=== PATIENT | male | born 1950 | race African-American/Black ===

== ENCOUNTER 2022-10-01 18:01 | Emergency (ER) | payer MEDICAID, OTHER ==
[~2022-10-01] VITALS: Ht 167.6 cm; Wt 63.0 kg
[2022-10-01 20:20] LABS: Red Cell Distribution Width 17.4 % (11.8-14.3)
[2022-10-01 20:22] LABS: Hematocrit 34.7 % (41.0-53.0); Mean Corpuscular Hemoglobin 25.2 pg (28.0-32.0); Mean Corpuscular Hgb Conc. 31.8 g/dL (32.0-36.0); Mean Corpuscular Volume 79.1 fL (80.0-100.0); Red Blood Cells 4.38 10^6/uL (4.5-5.90); White Blood Cell 7.1 10^3/uL (4.4-10.8)
[2022-10-01 20:32] LABS: BUN/Creatinine Ratio 8.8; Band Neutrophils % (manual) 0; Basophils % (manual) 0 (0.0-2.0); Blast Cells 0; Calcium 8.6 mg/dL (8.5-10.1); Eosinophils % (manual) 0 (0-7); Metamyelocytes % 0; Myelocytes % 0; Potassium 3.9 mmol/L (3.5-5.1); Promyelocytes % 0; Reactive Lymphocytes 0
[2022-10-01 20:35] LABS: Bilirubin, Total 0.2 mg/dL (0.2-1.0); Total Protein 7.7 g/dL (6.4-8.2)
[2022-10-01 21:05] LABS: Lymphocytes % (manual) 21 (10.0-50.0); Monocytes % (manual) 3 (0-12)
[2022-10-01] MEDS ORDERED: CIPR0.3S EACHEYE (21:11)
[2022-10-01 23:50] VITALS: BP 151/89
== END 2022-10-01 21:11 | disposition home or self-care (01) ==
LOC: ER 18:01 → EDBD 18:01 → ER 21:11
DX: T69.9XXA Effect of reduced temperature, unspecified, initial encounter (principal); H10.9 Unspecified conjunctivitis; I10 Essential (primary) hypertension; F17.210 Nicotine dependence, cigarettes, uncomplicated
CPT/HCPCS: 36415; 71046; 80053; 85007; 85027

== ENCOUNTER 2022-10-02 06:38 | Emergency (ER) | payer MEDICAID ==
[~2022-10-02] VITALS: Ht 167.6 cm; Wt 61.3 kg
[~2022-10-02 06:38] MED LIST: CIPR0.3S EACHEYE
[2022-10-02 07:00] VITALS: BP 161/116
== END 2022-10-02 09:01 | disposition left against medical advice (07) ==
LOC: ER 06:38
DX: R51.9 Headache, unspecified (principal); Z53.21 Procedure and treatment not carried out due to patient leaving prior to being seen by health care provider

== ENCOUNTER 2022-10-03 09:19 | Inpatient (IN) | payer MEDICAID, OTHER ==
[2022-10-03] VITALS (7 sets, daily range): BP systolic 106–150; BP diastolic 69–93
[~2022-10-03] VITALS: Ht 167.6 cm; Wt 57.3 kg
[2022-10-03] MEDS ORDERED: ETOMIDATE (2MG/ML) 20ML VIAL IV ONE ×2 (10:08→10:15)
[2022-10-03] MEDS ORDERED: SUCCINYLCHOLINE CHLORIDE 20 MG/ML 10ML VIAL IV ONE ×2 (10:08→10:15)
[2022-10-03] MEDS ORDERED: MIDAZOLAM DRIP 50 mg/50mL 50 ML IV ONE (10:12)
[2022-10-03] MEDS: MIDAZOLAM DRIP 50 mg/50mL 50 ML IV SCH ×4 (10:30→21:05)
[2022-10-03] MEDS ORDERED: SODIUM CHLORIDE 0.9% 1,000 ML IV ONE (11:15)
[2022-10-03 11:35] LABS: Basophils # (auto) 0 10 ^3/uL (0-0.2); Eosinophils # (auto) 0 10 ^3/uL (0-0.8); Hemoglobin 10.4 g/dL (13.5-17.5); Lymphocytes # (auto) 0.7 10 ^3/uL (0.4-5.4); Monocytes # (auto) 0.1 10 ^3/uL (0-1.3); White Blood Cell 6.4 10^3/uL (4.4-10.8)
[2022-10-03 11:37] LABS: Basophils % (auto) 0.2 % (0.0-2.0); Hematocrit 33.7 % (41.0-53.0); Lymphocytes % (auto) 11.5 % (10.0-50.0); Mean Corpuscular Hemoglobin 24.4 pg (28.0-32.0); Mean Corpuscular Volume 78.8 fL (80.0-100.0); Monocytes % (auto) 1.4 % (0.0-12.0); Neutrophils # (auto) 5.6 10 ^3/uL (1.6-8.6); Neutrophils % (auto) 86.9 % (37.0-80.0); Nucleated Red Blood Cells % 0.1 %; Red Blood Cells 4.27 10^6/uL (4.5-5.90); Red Cell Distribution Width 17.1 % (11.8-14.3)
[2022-10-03 11:43] LABS: Urine Bacteria NONE SEEN /hpf (None Seen); Urine Blood 3+ /uL (Negative); Urine Hyaline Cast MOD /lpf (0 - 2); Urine Mucus FEW (None Seen); Urine Specific Gravity 1.013 (1.001-1.035); Urine WBC 1 /hpf (0 - 3)
[2022-10-03 11:48] LABS: Alcohol, Urine < 3.0 mg/dL (0-10); Amphetamine Screen, Urine NEGATIVE (NEGATIVE); Barbiturate Scree,Urine NEGATIVE (NEGATIVE); Benzodiazephine Screen, Urine NEGATIVE (NEGATIVE); Cannabinoid Screen, Urine NEGATIVE (NEGATIVE); Cocaine Screen, Urine NEGATIVE (NEGATIVE); Opiate Scree,Urine NEGATIVE (NEGATIVE); Phencyclidine Screen, Urine NEGATIVE (NEGATIVE)
[2022-10-03 11:50] LABS: BUN/Creatinine Ratio 12.3; Calcium 9.1 mg/dL (8.5-10.1); Potassium 3.7 mmol/L (3.5-5.1)
[2022-10-03 11:53] LABS: Bilirubin, Total 0.5 mg/dL (0.2-1.0); Lactic Acid w/Reflex 6.3 mmol/L (0.4-2.0); Total Protein 6.9 g/dL (6.4-8.2)
[2022-10-03] MEDS ORDERED: SODIUM CHLORIDE 0.9% 2,000 ML IV ONE (13:15)
[2022-10-03] MEDS ORDERED: ALBUTEROL SULF 2.5 MG/0.5ML(0.5%) NEB SOLN NEB PRN (16:00)
[2022-10-03] MEDS ORDERED: CIPROFLOXACIN 0.3%OPTH(EYE) SOL 5ML LEFTEYE ONE (16:00)
[2022-10-03] MEDS ORDERED: ONDANSETRON HCL 4 MG/2 ML VIAL IV PRN (16:00)
[2022-10-03] MEDS ORDERED: NITROGLYCERIN 0.4 MG SL TAB SL PRN (16:00)
[2022-10-03] MEDS ORDERED: MORPHINE SULFATE INJ 2 MG/ml SYRG IV PRN (16:00)
[2022-10-03] MEDS: fentaNYL Drip 2500mCg/250mlNS 250 ML IV SCH ×2 (17:28→23:10)
[2022-10-04] VITALS (68 sets, daily range): BP systolic 108–166; BP diastolic 68–98
[2022-10-04] MEDS: MIDAZOLAM DRIP 50 mg/50mL 50 ML IV SCH ×3 (00:47→12:32)
[2022-10-04] MEDS ORDERED: VANCOMYCIN 1GM/250ML 250 ML IV ONE (06:30)
[2022-10-04 06:33] LABS: Eosinophils # (auto) 0 10 ^3/uL (0-0.8); Lymphocytes # (auto) 0.4 10 ^3/uL (0.4-5.4)
[2022-10-04 06:34] LABS: BUN/Creatinine Ratio 12.9; Calcium 8.5 mg/dL (8.5-10.1); Potassium 4.2 mmol/L (3.5-5.1)
[2022-10-04 06:37] LABS: Basophils # (auto) 0 10 ^3/uL (0-0.2); Basophils % (auto) 0.2 % (0.0-2.0); Eosinophils % (auto) 0.1 % (0.0-7.0); Hematocrit 28.9 % (41.0-53.0); Hemoglobin 9.5 g/dL (13.5-17.5); Lymphocytes % (auto) 3.6 % (10.0-50.0); Mean Corpuscular Hemoglobin 25.4 pg (28.0-32.0); Monocytes # (auto) 0.2 10 ^3/uL (0-1.3); Neutrophils # (auto) 11.5 10 ^3/uL (1.6-8.6); Neutrophils % (auto) 94.1 % (37.0-80.0); Red Blood Cells 3.76 10^6/uL (4.5-5.90); Red Cell Distribution Width 17.7 % (11.8-14.3); White Blood Cell 12.2 10^3/uL (4.4-10.8)
[2022-10-04] MEDS ORDERED: VANCOMYCIN PER PHARMACY 0 MG IV SCH (08:00)
[2022-10-04] MEDS: ENOXAPARIN SOD 40 MG/0.4 ML SYRINGE SC SCH (10:24)
[2022-10-04] MEDS: ASPirin-EC 81 mg tab PO SCH (10:24)
[2022-10-04] MEDS: cefTRIAXone 1GM/50ML D5W 50 ML IV SCH (10:27)
[2022-10-04] MEDS: D5W/SOD CHL 0.45% 1,000 ML IV SCH ×2 (10:30→21:25)
[2022-10-04] MEDS: CIPROFLOXACIN 0.3%OPTH(EYE) SOL 5ML LEFTEYE SCH ×3 (13:40→22:26)
[2022-10-05] VITALS (103 sets, daily range): BP systolic 110–186; BP diastolic 63–108
[2022-10-05] MEDS: CIPROFLOXACIN 0.3%OPTH(EYE) SOL 5ML LEFTEYE SCH ×7 (01:35→21:48)
[2022-10-05 04:40] LABS: Basophils # (auto) 0.1 10 ^3/uL (0-0.2); Eosinophils # (auto) 0 10 ^3/uL (0-0.8); Lymphocytes # (auto) 0.7 10 ^3/uL (0.4-5.4); Mean Corpuscular Hgb Conc. 31.2 g/dL (32.0-36.0); Monocytes # (auto) 0.5 10 ^3/uL (0-1.3)
[2022-10-05 04:41] LABS: Basophils % (auto) 0.8 % (0.0-2.0); Hematocrit 27.6 % (41.0-53.0); Hemoglobin 8.6 g/dL (13.5-17.5); Lymphocytes % (auto) 7.2 % (10.0-50.0); Mean Corpuscular Hemoglobin 24.6 pg (28.0-32.0); Monocytes % (auto) 5.5 % (0.0-12.0); Neutrophils # (auto) 8.1 10 ^3/uL (1.6-8.6); Neutrophils % (auto) 86.5 % (37.0-80.0); Red Blood Cells 3.49 10^6/uL (4.5-5.90); Red Cell Distribution Width 18.2 % (11.8-14.3); White Blood Cell 9.4 10^3/uL (4.4-10.8)
[2022-10-05 04:55] LABS: Albumin 2.1 g/dL (3.4-5.0)
[2022-10-05 04:58] LABS: Bilirubin, Total 0.2 mg/dL (0.2-1.0); Total Protein 5.1 g/dL (6.4-8.2)
[2022-10-05] MEDS: D5W/SOD CHL 0.45% 1,000 ML IV SCH ×3 (06:30→18:04)
[2022-10-05] MEDS: ASPirin-EC 81 mg tab PO SCH (09:35)
[2022-10-05] MEDS: cefTRIAXone 1GM/50ML D5W 50 ML IV SCH (09:35)
[2022-10-05] MEDS: ENOXAPARIN SOD 40 MG/0.4 ML SYRINGE SC SCH (09:36)
[2022-10-05] MEDS ORDERED: hydrALAZINE HCL 20 MG/ML VL IV PRN (10:45)
[2022-10-05 12:18] LABS: Magnesium 2.1 mg/dL (1.6-2.6); Phosphorus 3.5 mg/dL (2.5-4.90)
[2022-10-05 14:01] LABS: Protein, Urine 95.6 mg/dL (0.0-11.9)
[2022-10-05] MEDS: fentaNYL Drip 2500mCg/250mlNS 250 ML IV SCH (16:00)
[2022-10-05] MEDS: LINEZOLID 600MG/300ML 300 ML IV SCH ×2 (18:01→22:02)
[2022-10-05] MEDS: MIDAZOLAM DRIP 50 mg/50mL 50 ML IV SCH (18:10)
[2022-10-05] MEDS: METOPROLOL TARTRATE 25 MG TAB PO SCH (21:48)
[2022-10-06] VITALS (75 sets, daily range): BP systolic 111–174; BP diastolic 60–126
[2022-10-06] MEDS: fentaNYL Drip 2500mCg/250mlNS 250 ML IV SCH (00:52)
[2022-10-06] MEDS: CIPROFLOXACIN 0.3%OPTH(EYE) SOL 5ML LEFTEYE SCH ×6 (02:33→21:15)
[2022-10-06] MEDS ORDERED: ALBUTEROL MEDNEB 2.5 mg/3ml NEB ONE ×2 (05:46→11:28)
[2022-10-06] MEDS ORDERED: IPRATROPIUM BROM 0.5 MG/2.5ML INH SOL ONE (05:46)
[2022-10-06 06:13] LABS: Basophils # (auto) 0.1 10 ^3/uL (0-0.2); Eosinophils # (auto) 0 10 ^3/uL (0-0.8); Hemoglobin 8.6 g/dL (13.5-17.5); Monocytes # (auto) 0.3 10 ^3/uL (0-1.3); Neutrophils # (auto) 5.5 10 ^3/uL (1.6-8.6)
[2022-10-06 06:16] LABS: Basophils % (auto) 1.1 % (0.0-2.0); Eosinophils % (auto) 0.4 % (0.0-7.0); Hematocrit 26.5 % (41.0-53.0); Lymphocytes # (auto) 0.8 10 ^3/uL (0.4-5.4); Lymphocytes % (auto) 12.4 % (10.0-50.0); Mean Corpuscular Hemoglobin 25.7 pg (28.0-32.0); Mean Corpuscular Hgb Conc. 32.5 g/dL (32.0-36.0); Neutrophils % (auto) 81.1 % (37.0-80.0); Red Blood Cells 3.36 10^6/uL (4.5-5.90); Red Cell Distribution Width 17.6 % (11.8-14.3); White Blood Cell 6.8 10^3/uL (4.4-10.8)
[2022-10-06 06:22] LABS: Calcium 8.4 mg/dL (8.5-10.1); Potassium 3.4 mmol/L (3.5-5.1)
[2022-10-06] MEDS: MIDAZOLAM DRIP 50 mg/50mL 50 ML IV SCH ×2 (08:15→18:15)
[2022-10-06] MEDS: D5W/SOD CHL 0.45% 1,000 ML IV SCH (08:51)
[2022-10-06] MEDS: cefTRIAXone 1GM/50ML D5W 50 ML IV SCH (08:56)
[2022-10-06] MEDS: POTASSIUM CHL 20MEQ/100ML 100 ML IV SCH ×2 (09:04→09:58)
[2022-10-06] MEDS: LINEZOLID 600MG/300ML 300 ML IV SCH ×2 (09:52→21:12)
[2022-10-06] MEDS: ASPirin-EC 81 mg tab PO SCH (09:52)
[2022-10-06] MEDS: METOPROLOL TARTRATE 25 MG TAB PO SCH ×2 (09:53→21:15)
[2022-10-06] MEDS ORDERED: ENOXAPARIN SOD 30 MG/0.3 ML SYRINGE SC SCH (10:00)
[2022-10-06] MEDS: D5W/SOD CHLO 0.9% 1,000 ML IV SCH (13:45)
[2022-10-06] MEDS ORDERED: ALBUTEROL MEDNEB 2.5 mg/3ml NEB NEB PRN (15:00)
[2022-10-06] MEDS: hydrALAZINE HCL 20 MG/ML VL IV PRN (19:52)
[2022-10-07] VITALS (26 sets, daily range): BP systolic 131–183; BP diastolic 68–98
[2022-10-07] MEDS: hydrALAZINE HCL 20 MG/ML VL IV PRN ×3 (01:25→23:18)
[2022-10-07] MEDS: CIPROFLOXACIN 0.3%OPTH(EYE) SOL 5ML LEFTEYE SCH ×6 (01:26→22:02)
[2022-10-07] MEDS: D5W/SOD CHLO 0.9% 1,000 ML IV SCH ×2 (02:32→06:00)
[2022-10-07] MEDS: MIDAZOLAM DRIP 50 mg/50mL 50 ML IV SCH ×2 (02:33→14:15)
[2022-10-07 04:09] LABS: Basophils # (auto) 0.1 10 ^3/uL (0-0.2); Basophils % (auto) 1.2 % (0.0-2.0); Eosinophils # (auto) 0 10 ^3/uL (0-0.8); Eosinophils % (auto) 0.2 % (0.0-7.0); Hematocrit 27.4 % (41.0-53.0); Hemoglobin 8.8 g/dL (13.5-17.5); Lymphocytes # (auto) 0.6 10 ^3/uL (0.4-5.4); Lymphocytes % (auto) 9.2 % (10.0-50.0); Mean Corpuscular Hemoglobin 25.3 pg (28.0-32.0); Mean Corpuscular Hgb Conc. 32.1 g/dL (32.0-36.0); Monocytes # (auto) 0.2 10 ^3/uL (0-1.3); Monocytes % (auto) 3.5 % (0.0-12.0); Neutrophils # (auto) 5.3 10 ^3/uL (1.6-8.6); Neutrophils % (auto) 85.9 % (37.0-80.0); Nucleated Red Blood Cells % 0.1 %; Red Blood Cells 3.46 10^6/uL (4.5-5.90); Red Cell Distribution Width 18.1 % (11.8-14.3); White Blood Cell 6.1 10^3/uL (4.4-10.8)
[2022-10-07 04:12] LABS: Calcium 8.8 mg/dL (8.5-10.1); Potassium 3.7 mmol/L (3.5-5.1)
[2022-10-07 04:15] LABS: BUN/Creatinine Ratio 7.9
[2022-10-07] MEDS: cefTRIAXone 1GM/50ML D5W 50 ML IV SCH (09:01)
[2022-10-07] MEDS: ASPirin-EC 81 mg tab PO SCH (10:15)
[2022-10-07] MEDS: ENOXAPARIN SOD 40 MG/0.4 ML SYRINGE SC SCH (10:16)
[2022-10-07] MEDS: METOPROLOL TARTRATE 25 MG TAB PO SCH ×2 (10:16→21:47)
[2022-10-07] MEDS: LINEZOLID 600MG/300ML 300 ML IV SCH ×2 (10:26→21:47)
[2022-10-07] MEDS: fentaNYL Drip 2500mCg/250mlNS 250 ML IV SCH (16:00)
[2022-10-07] MEDS: ACETAMINOPHEN 500 MG TAB PO PRN (16:02)
[2022-10-08] MEDS: CIPROFLOXACIN 0.3%OPTH(EYE) SOL 5ML LEFTEYE SCH ×6 (01:59→22:03)
[2022-10-08 05:00] VITALS: BP 127/97
[2022-10-08] MEDS: LINEZOLID 600MG/300ML 300 ML IV SCH (10:00)
[2022-10-08] MEDS: cefTRIAXone 1GM/50ML D5W 50 ML IV SCH (10:14)
[2022-10-08] MEDS: ASPirin-EC 81 mg tab PO SCH (10:15)
[2022-10-08] MEDS: METOPROLOL TARTRATE 25 MG TAB PO SCH (10:15)
[2022-10-08] MEDS: ENOXAPARIN SOD 40 MG/0.4 ML SYRINGE SC SCH (10:15)
[2022-10-08] MEDS: hydrALAZINE HCL 20 MG/ML VL IV PRN (12:42)
[2022-10-08 13:00] VITALS: BP 170/114
[2022-10-08] MEDS: NIFEdipine ER 30 MG TAB PO SCH (15:05)
[2022-10-08 16:41] VITALS: BP 178/111
[2022-10-08] MEDS: LABETALOL HCL 5 MG/ML 4ML SYRINGE IV PRN ×2 (17:01→23:40)
[2022-10-08 18:25] VITALS: BP 195/89
[2022-10-08] MEDS ORDERED: cloNIDine HCL 0.1 MG TAB PO ONE (18:30)
[2022-10-08] MEDS: DOXYCYCLINE 100 MG TAB/CAP PO SCH (21:57)
[2022-10-08] MEDS: METOPROLOL TARTRATE 50 MG TAB PO SCH (21:58)
[2022-10-08 22:00] VITALS: BP 179/93
[2022-10-09] MEDS: CIPROFLOXACIN 0.3%OPTH(EYE) SOL 5ML LEFTEYE SCH ×6 (02:19→22:22)
[2022-10-09 05:00] VITALS: BP 137/77
[2022-10-09 05:39] LABS: Basophils # (auto) 0 10 ^3/uL (0-0.2); Eosinophils # (auto) 0 10 ^3/uL (0-0.8); Eosinophils % (auto) 0.6 % (0.0-7.0); Hematocrit 28.4 % (41.0-53.0); Lymphocytes # (auto) 0.8 10 ^3/uL (0.4-5.4); Monocytes # (auto) 0.2 10 ^3/uL (0-1.3); Neutrophils % (auto) 78.9 % (37.0-80.0); Nucleated Red Blood Cells % 0.1 %; White Blood Cell 5.1 10^3/uL (4.4-10.8)
[2022-10-09 05:42] LABS: Basophils % (auto) 0.2 % (0.0-2.0); Hemoglobin 9.3 g/dL (13.5-17.5); Lymphocytes % (auto) 16.3 % (10.0-50.0); Mean Corpuscular Hemoglobin 25.7 pg (28.0-32.0); Mean Corpuscular Hgb Conc. 32.8 g/dL (32.0-36.0); Mean Corpuscular Volume 78.3 fL (80.0-100.0); Neutrophils # (auto) 4.1 10 ^3/uL (1.6-8.6); Red Blood Cells 3.62 10^6/uL (4.5-5.90); Red Cell Distribution Width 18.4 % (11.8-14.3)
[2022-10-09 05:51] LABS: BUN/Creatinine Ratio 9.4; Calcium 9.4 mg/dL (8.5-10.1)
[2022-10-09 08:44] VITALS: BP_SYST 120; BP_SYST 130; BP_DIAS 60; BP_DIAS 75
[2022-10-09] MEDS: cefTRIAXone 1GM/50ML D5W 50 ML IV SCH (09:29)
[2022-10-09] MEDS: ASPirin-EC 81 mg tab PO SCH ×2 (09:29→09:31)
[2022-10-09] MEDS: NIFEdipine ER 30 MG TAB PO SCH (09:31)
[2022-10-09] MEDS: CHOLECALCIFEROL (VITD3) 2,000 UNIT CAP/TAB PO SCH (09:31)
[2022-10-09] MEDS: DOXYCYCLINE 100 MG TAB/CAP PO SCH (09:31)
[2022-10-09] MEDS: METOPROLOL TARTRATE 50 MG TAB PO SCH ×2 (09:31→21:26)
[2022-10-09] MEDS: ENOXAPARIN SOD 40 MG/0.4 ML SYRINGE SC SCH (09:32)
[2022-10-09] MEDS: levoFLOXacin 500MG 100 ML IV SCH (11:58)
[2022-10-09] MEDS: LABETALOL HCL 5 MG/ML 4ML SYRINGE IV PRN (21:26)
[2022-10-09 22:00] VITALS: BP 178/99
[2022-10-09] MEDS: ACETAMINOPHEN 500 MG TAB PO PRN (22:40)
[2022-10-10] MEDS: LABETALOL HCL 5 MG/ML 4ML SYRINGE IV PRN (00:44)
[2022-10-10] MEDS: CIPROFLOXACIN 0.3%OPTH(EYE) SOL 5ML LEFTEYE SCH ×6 (02:14→22:00)
[2022-10-10 05:17] VITALS: BP 121/90
[2022-10-10] MEDS: levoFLOXacin 500MG 100 ML IV SCH (08:56)
[2022-10-10] MEDS: NIFEdipine ER 30 MG TAB PO SCH (08:57)
[2022-10-10] MEDS: METOPROLOL TARTRATE 50 MG TAB PO SCH ×2 (08:57→21:08)
[2022-10-10] MEDS: ENOXAPARIN SOD 40 MG/0.4 ML SYRINGE SC SCH (08:57)
[2022-10-10] MEDS: CHOLECALCIFEROL (VITD3) 2,000 UNIT CAP/TAB PO SCH (08:57)
[2022-10-10] MEDS: ASPirin-EC 81 mg tab PO SCH (08:58)
[2022-10-10 09:06] VITALS: BP 128/90
[2022-10-10 12:44] VITALS: BP 124/84
[2022-10-10 16:20] VITALS: BP 139/82
[2022-10-10 22:53] VITALS: BP 139/93
[2022-10-11] MEDS: CIPROFLOXACIN 0.3%OPTH(EYE) SOL 5ML LEFTEYE SCH ×6 (02:04→22:18)
[2022-10-11 05:00] VITALS: BP 150/79
[2022-10-11 09:00] VITALS: BP 153/85
[2022-10-11] MEDS: CHOLECALCIFEROL (VITD3) 2,000 UNIT CAP/TAB PO SCH (09:43)
[2022-10-11] MEDS: METOPROLOL TARTRATE 50 MG TAB PO SCH ×2 (09:44→22:18)
[2022-10-11] MEDS: ASPirin-EC 81 mg tab PO SCH (09:44)
[2022-10-11] MEDS: ENOXAPARIN SOD 40 MG/0.4 ML SYRINGE SC SCH (09:45)
[2022-10-11] MEDS: NIFEdipine ER 30 MG TAB PO SCH (09:45)
[2022-10-11] MEDS: levoFLOXacin 500MG 100 ML IV SCH (09:46)
[2022-10-11 13:00] VITALS: BP 101/59
[2022-10-11 22:22] VITALS: BP 145/80
[2022-10-12] VITALS (7 sets, daily range): BP systolic 124–159; BP diastolic 69–93
[2022-10-12] MEDS: CIPROFLOXACIN 0.3%OPTH(EYE) SOL 5ML LEFTEYE SCH ×6 (02:10→23:10)
[2022-10-12] MEDS: levoFLOXacin 500MG 100 ML IV SCH (09:57)
[2022-10-12] MEDS: ASPirin-EC 81 mg tab PO SCH (09:57)
[2022-10-12] MEDS: CHOLECALCIFEROL (VITD3) 2,000 UNIT CAP/TAB PO SCH (09:57)
[2022-10-12] MEDS: ENOXAPARIN SOD 40 MG/0.4 ML SYRINGE SC SCH (09:57)
[2022-10-12] MEDS: METOPROLOL TARTRATE 50 MG TAB PO SCH ×2 (09:58→23:10)
[2022-10-12] MEDS: NIFEdipine ER 30 MG TAB PO SCH (09:58)
[2022-10-13] MEDS: CIPROFLOXACIN 0.3%OPTH(EYE) SOL 5ML LEFTEYE SCH ×6 (02:00→21:49)
[2022-10-13 07:30] VITALS: BP 120/85
[2022-10-13 09:00] VITALS: BP 129/76
[2022-10-13] MEDS: NIFEdipine ER 30 MG TAB PO SCH (09:27)
[2022-10-13] MEDS: CHOLECALCIFEROL (VITD3) 2,000 UNIT CAP/TAB PO SCH (09:28)
[2022-10-13] MEDS: METOPROLOL TARTRATE 50 MG TAB PO SCH ×2 (09:28→21:50)
[2022-10-13] MEDS: ASPirin-EC 81 mg tab PO SCH (09:28)
[2022-10-13] MEDS: ENOXAPARIN SOD 40 MG/0.4 ML SYRINGE SC SCH (09:29)
[2022-10-13] MEDS: levoFLOXacin 500MG 100 ML IV SCH (09:32)
[2022-10-13 13:00] VITALS: BP 92/63
[2022-10-13] MEDS ORDERED: LORazepam 2MG/ML-1ML VIAL IV PRN (15:15)
[2022-10-13 17:08] VITALS: BP 130/74
[2022-10-13 20:00] VITALS: BP 120/85
[2022-10-13 22:00] VITALS: BP 129/75
[2022-10-14] MEDS: CIPROFLOXACIN 0.3%OPTH(EYE) SOL 5ML LEFTEYE SCH ×6 (02:22→21:23)
[2022-10-14 05:00] VITALS: BP 124/78
[2022-10-14] MEDS: ENOXAPARIN SOD 40 MG/0.4 ML SYRINGE SC SCH (10:00)
[2022-10-14] MEDS: ASPirin-EC 81 mg tab PO SCH (10:07)
[2022-10-14] MEDS: CHOLECALCIFEROL (VITD3) 2,000 UNIT CAP/TAB PO SCH (10:07)
[2022-10-14] MEDS: NIFEdipine ER 30 MG TAB PO SCH (10:10)
[2022-10-14] MEDS: levoFLOXacin 500MG 100 ML IV SCH (10:11)
[2022-10-14] MEDS: METOPROLOL TARTRATE 50 MG TAB PO SCH ×2 (10:11→21:32)
[2022-10-14 13:45] LABS: BUN/Creatinine Ratio 33.6; Potassium 4.7 mmol/L (3.5-5.1)
[2022-10-14 13:46] LABS: Calcium 8.6 mg/dL (8.5-10.1)
[2022-10-14 18:18] LABS: Basophils # (auto) 0.1 10 ^3/uL (0-0.2); Basophils % (auto) 1.2 % (0.0-2.0); Eosinophils # (auto) 0.1 10 ^3/uL (0-0.8); Hemoglobin 7.2 g/dL (13.5-17.5); Lymphocytes # (auto) 1.6 10 ^3/uL (0.4-5.4); Mean Corpuscular Hgb Conc. 31.9 g/dL (32.0-36.0); Monocytes # (auto) 0.3 10 ^3/uL (0-1.3); White Blood Cell 9.2 10^3/uL (4.4-10.8)
[2022-10-14 18:20] LABS: Hematocrit 22.6 % (41.0-53.0); Lymphocytes % (auto) 17.8 % (10.0-50.0); Mean Corpuscular Hemoglobin 25.5 pg (28.0-32.0); Mean Corpuscular Volume 79.8 fL (80.0-100.0); Monocytes % (auto) 3.8 % (0.0-12.0); Neutrophils % (auto) 76.2 % (37.0-80.0); Red Blood Cells 2.83 10^6/uL (4.5-5.90)
[2022-10-14 22:00] VITALS: BP 150/70
[2022-10-15] MEDS: CIPROFLOXACIN 0.3%OPTH(EYE) SOL 5ML LEFTEYE SCH ×6 (01:36→22:08)
[2022-10-15 05:00] VITALS: BP 135/55
[2022-10-15 09:02] VITALS: BP 119/57
[2022-10-15] MEDS: levoFLOXacin 250MG 50 ML IV SCH (09:13)
[2022-10-15] MEDS: ENOXAPARIN SOD 40 MG/0.4 ML SYRINGE SC SCH (09:13)
[2022-10-15] MEDS: ASPirin-EC 81 mg tab PO SCH (09:14)
[2022-10-15] MEDS: CHOLECALCIFEROL (VITD3) 2,000 UNIT CAP/TAB PO SCH (09:14)
[2022-10-15] MEDS: METOPROLOL TARTRATE 50 MG TAB PO SCH ×2 (09:15→21:33)
[2022-10-15] MEDS: NIFEdipine ER 30 MG TAB PO SCH (09:15)
[2022-10-15 12:28] VITALS: BP 121/75
[2022-10-15] MEDS ORDERED: SODIUM FERR GLUC 62.5MG/5ML 125 MG in SODIUM CHL 0.9% 100 ML IV ONE (13:30)
[2022-10-15 14:34] LABS: Folate (Folic Acid) 8.64 ng/mL (5.38-24)
[2022-10-15] MEDS: SODIUM CHLORIDE 0.9% 1,000 ML IV SCH ×2 (15:10→23:30)
[2022-10-15 16:55] VITALS: BP 123/72
[2022-10-15 21:34] VITALS: BP 124/56
[2022-10-16] MEDS: CIPROFLOXACIN 0.3%OPTH(EYE) SOL 5ML LEFTEYE SCH ×6 (01:52→21:57)
[2022-10-16 04:39] VITALS: BP 134/66
[2022-10-16 08:43] VITALS: BP 142/63
[2022-10-16] MEDS: levoFLOXacin 250MG 50 ML IV SCH (09:32)
[2022-10-16] MEDS: ENOXAPARIN SOD 40 MG/0.4 ML SYRINGE SC SCH (09:32)
[2022-10-16] MEDS: PANTOPRAZOLE 40 MG/10 ML VIAL INJ IV SCH (09:32)
[2022-10-16] MEDS: SODIUM CHLORIDE 0.9% 1,000 ML IV SCH ×2 (09:32→19:55)
[2022-10-16] MEDS: CHOLECALCIFEROL (VITD3) 2,000 UNIT CAP/TAB PO SCH (09:33)
[2022-10-16] MEDS: ASPirin-EC 81 mg tab PO SCH (09:33)
[2022-10-16] MEDS: OLANZapine 5 MG TAB PO SCH (09:33)
[2022-10-16] MEDS: NIFEdipine ER 30 MG TAB PO SCH (09:33)
[2022-10-16] MEDS: METOPROLOL TARTRATE 50 MG TAB PO SCH ×2 (09:34→21:57)
[2022-10-16 12:31] VITALS: BP 122/76
[2022-10-16 16:47] VITALS: BP 122/68
[2022-10-16 21:37] VITALS: BP 124/64
[2022-10-17] VITALS (7 sets, daily range): BP systolic 107–144; BP diastolic 65–76
[2022-10-17] MEDS: CIPROFLOXACIN 0.3%OPTH(EYE) SOL 5ML LEFTEYE SCH ×4 (01:52→14:00)
[2022-10-17] MEDS: SODIUM CHLORIDE 0.9% 1,000 ML IV SCH (05:28)
[2022-10-17 05:57] LABS: Basophils # (auto) 0.1 10 ^3/uL (0-0.2); Eosinophils # (auto) 0.1 10 ^3/uL (0-0.8); Monocytes # (auto) 0.4 10 ^3/uL (0-1.3); White Blood Cell 8.6 10^3/uL (4.4-10.8)
[2022-10-17 06:00] LABS: Eosinophils % (auto) 1.1 % (0.0-7.0); Hematocrit 18.7 % (41.0-53.0); Lymphocytes # (auto) 1.3 10 ^3/uL (0.4-5.4); Mean Corpuscular Hgb Conc. 32.1 g/dL (32.0-36.0); Monocytes % (auto) 4.4 % (0.0-12.0); Neutrophils # (auto) 6.8 10 ^3/uL (1.6-8.6); Neutrophils % (auto) 78.5 % (37.0-80.0); Nucleated Red Blood Cells % 0.4 %; Red Blood Cells 2.31 10^6/uL (4.5-5.90); Red Cell Distribution Width 18.4 % (11.8-14.3)
[2022-10-17 06:15] LABS: BUN/Creatinine Ratio 13.1; Calcium 8.4 mg/dL (8.5-10.1); Potassium 4.2 mmol/L (3.5-5.1)
[2022-10-17] MEDS: ASPirin-EC 81 mg tab PO SCH (10:34)
[2022-10-17] MEDS: METOPROLOL TARTRATE 50 MG TAB PO SCH ×2 (10:34→21:37)
[2022-10-17] MEDS: NIFEdipine ER 30 MG TAB PO SCH (10:35)
[2022-10-17] MEDS: OLANZapine 5 MG TAB PO SCH (10:35)
[2022-10-17] MEDS: PANTOPRAZOLE 40 MG/10 ML VIAL INJ IV SCH (10:36)
[2022-10-17] MEDS: levoFLOXacin 250MG 50 ML IV SCH (10:36)
[2022-10-17] MEDS: ENOXAPARIN SOD 40 MG/0.4 ML SYRINGE SC SCH (10:37)
[2022-10-17] MEDS: CHOLECALCIFEROL (VITD3) 2,000 UNIT CAP/TAB PO SCH (10:37)
[2022-10-17] MEDS ORDERED: LORazepam 0.5 MG TAB PO PRN (18:15)
[2022-10-18 05:00] VITALS: BP 152/83
[2022-10-18 08:43] VITALS: BP 155/65
[2022-10-18] MEDS: FERROUS SULFATE 325mg EC TAB PO SCH ×2 (09:56→19:31)
[2022-10-18] MEDS: NIFEdipine ER 30 MG TAB PO SCH (09:57)
[2022-10-18] MEDS: CHOLECALCIFEROL (VITD3) 2,000 UNIT CAP/TAB PO SCH (09:58)
[2022-10-18] MEDS: OLANZapine 5 MG TAB PO SCH (09:58)
[2022-10-18] MEDS: METOPROLOL TARTRATE 50 MG TAB PO SCH ×2 (09:59→21:30)
[2022-10-18] MEDS: MULTIPLE VITAMIN TAB PO SCH (10:00)
[2022-10-18] MEDS: PANTOPRAZOLE 40 MG/10 ML VIAL INJ IV SCH (10:00)
[2022-10-18 12:34] VITALS: BP 104/69
[2022-10-18] MEDS ORDERED: ARTIFICIAL TEARS 15ml EACHEYE PRN (14:30)
[2022-10-18 16:47] VITALS: BP 138/78
[2022-10-18 20:00] VITALS: BP 125/60
[2022-10-18 22:00] VITALS: BP 125/60
[2022-10-18 22:15] LABS: Basophils # (auto) 0.1 10 ^3/uL (0-0.2); Eosinophils # (auto) 0.1 10 ^3/uL (0-0.8); Mean Corpuscular Volume 80.7 fL (80.0-100.0); Monocytes % (auto) 4.7 % (0.0-12.0)
[2022-10-18 22:17] LABS: Basophils % (auto) 1.4 % (0.0-2.0); Eosinophils % (auto) 1.6 % (0.0-7.0); Hematocrit 21.6 % (41.0-53.0); Lymphocytes # (auto) 1.4 10 ^3/uL (0.4-5.4); Lymphocytes % (auto) 18.3 % (10.0-50.0); Mean Corpuscular Hemoglobin 25.8 pg (28.0-32.0); Monocytes # (auto) 0.3 10 ^3/uL (0-1.3); Neutrophils # (auto) 5.5 10 ^3/uL (1.6-8.6); Nucleated Red Blood Cells % 0.1 %; Red Blood Cells 2.68 10^6/uL (4.5-5.90); Red Cell Distribution Width 18.2 % (11.8-14.3); White Blood Cell 7.4 10^3/uL (4.4-10.8)
[2022-10-18 22:28] LABS: Hemoglobin 6.9 g/dL (13.5-17.5)
[2022-10-19 05:00] VITALS: BP 120/68
[2022-10-19] MEDS: FERROUS SULFATE 325mg EC TAB PO SCH ×2 (09:00→17:20)
[2022-10-19] MEDS: OLANZapine 5 MG TAB PO SCH (09:01)
[2022-10-19] MEDS: MULTIPLE VITAMIN TAB PO SCH (09:01)
[2022-10-19] MEDS: CHOLECALCIFEROL (VITD3) 2,000 UNIT CAP/TAB PO SCH (09:01)
[2022-10-19] MEDS: PANTOPRAZOLE 40 MG/10 ML VIAL INJ IV SCH (09:02)
[2022-10-19] MEDS: METOPROLOL TARTRATE 50 MG TAB PO SCH ×2 (09:05→21:52)
[2022-10-19] MEDS: NIFEdipine ER 30 MG TAB PO SCH (09:05)
[2022-10-19 13:00] VITALS: BP 120/68
[2022-10-19 17:00] VITALS: BP 122/76
[2022-10-19 20:00] VITALS: BP 117/72
[2022-10-19 21:56] VITALS: BP 117/72
[2022-10-20 05:28] VITALS: BP 104/65
[2022-10-20 09:00] VITALS: BP 115/69
[2022-10-20] MEDS: PANTOPRAZOLE 40 MG/10 ML VIAL INJ IV SCH (10:00)
[2022-10-20] MEDS: NIFEdipine ER 30 MG TAB PO SCH (10:00)
[2022-10-20] MEDS: FERROUS SULFATE 325mg EC TAB PO SCH ×2 (11:11→17:54)
[2022-10-20] MEDS: METOPROLOL TARTRATE 50 MG TAB PO SCH ×2 (11:11→21:41)
[2022-10-20] MEDS: MULTIPLE VITAMIN TAB PO SCH (11:11)
[2022-10-20] MEDS: OLANZapine 5 MG TAB PO SCH (11:12)
[2022-10-20] MEDS: CHOLECALCIFEROL (VITD3) 2,000 UNIT CAP/TAB PO SCH (11:12)
[2022-10-20 13:00] VITALS: BP 115/69
[2022-10-20 17:00] VITALS: BP 131/64
[2022-10-20 22:00] VITALS: BP 150/84
[2022-10-21 05:00] VITALS: BP 144/80
[2022-10-21] MEDS: CHOLECALCIFEROL (VITD3) 2,000 UNIT CAP/TAB PO SCH (08:32)
[2022-10-21] MEDS: FERROUS SULFATE 325mg EC TAB PO SCH ×2 (08:32→18:08)
[2022-10-21] MEDS: NIFEdipine ER 30 MG TAB PO SCH (08:32)
[2022-10-21] MEDS: METOPROLOL TARTRATE 50 MG TAB PO SCH ×2 (08:33→21:55)
[2022-10-21] MEDS: MULTIPLE VITAMIN TAB PO SCH (08:33)
[2022-10-21] MEDS: OLANZapine 5 MG TAB PO SCH (08:33)
[2022-10-21 09:00] VITALS: BP 147/85
[2022-10-21] MEDS: PANTOPRAZOLE 40 MG/10 ML VIAL INJ IV SCH (10:00)
[2022-10-21 13:00] VITALS: BP 111/63
[2022-10-21 17:00] VITALS: BP 118/69
[2022-10-21 22:11] VITALS: BP 120/78
[2022-10-22 04:42] VITALS: BP 128/78
[2022-10-22 09:00] VITALS: BP 129/66
[2022-10-22] MEDS: PANTOPRAZOLE 40 MG/10 ML VIAL INJ IV SCH (10:00)
[2022-10-22] MEDS: METOPROLOL TARTRATE 50 MG TAB PO SCH ×2 (10:00→21:51)
[2022-10-22] MEDS: NIFEdipine ER 30 MG TAB PO SCH (10:00)
[2022-10-22] MEDS: CHOLECALCIFEROL (VITD3) 2,000 UNIT CAP/TAB PO SCH (10:15)
[2022-10-22] MEDS: FERROUS SULFATE 325mg EC TAB PO SCH ×2 (10:16→18:00)
[2022-10-22] MEDS: OLANZapine 5 MG TAB PO SCH (10:16)
[2022-10-22] MEDS: MULTIPLE VITAMIN TAB PO SCH (10:18)
[2022-10-22 13:00] VITALS: BP 134/65
[2022-10-22 17:18] VITALS: BP 134/84
[2022-10-22 20:00] VITALS: BP 120/66
[2022-10-22 22:00] VITALS: BP 149/84
[2022-10-23 05:00] VITALS: BP 140/89
[2022-10-23 09:00] VITALS: BP 157/88
[2022-10-23] MEDS: PANTOPRAZOLE 40 MG/10 ML VIAL INJ IV SCH ×2 (10:00→10:20)
[2022-10-23] MEDS: CHOLECALCIFEROL (VITD3) 2,000 UNIT CAP/TAB PO SCH (10:18)
[2022-10-23] MEDS: OLANZapine 5 MG TAB PO SCH (10:18)
[2022-10-23] MEDS: MULTIPLE VITAMIN TAB PO SCH (10:18)
[2022-10-23] MEDS: METOPROLOL TARTRATE 50 MG TAB PO SCH ×2 (10:19→21:55)
[2022-10-23] MEDS: FERROUS SULFATE 325mg EC TAB PO SCH ×2 (10:20→18:13)
[2022-10-23] MEDS: NIFEdipine ER 30 MG TAB PO SCH (10:20)
[2022-10-23 13:00] VITALS: BP 136/85
[2022-10-23 17:00] VITALS: BP 131/77
[2022-10-23 22:00] VITALS: BP 124/71
[2022-10-24 05:00] VITALS: BP 128/64
[2022-10-24 05:51] LABS: Eosinophils # (auto) 0.1 10 ^3/uL (0-0.8); Lymphocytes # (auto) 1.4 10 ^3/uL (0.4-5.4); Monocytes # (auto) 0.4 10 ^3/uL (0-1.3)
[2022-10-24 05:54] LABS: Basophils # (auto) 0 10 ^3/uL (0-0.2); Basophils % (auto) 0.8 % (0.0-2.0); Hematocrit 23.8 % (41.0-53.0); Hemoglobin 7.8 g/dL (13.5-17.5); Lymphocytes % (auto) 26.4 % (10.0-50.0); Mean Corpuscular Hemoglobin 26.4 pg (28.0-32.0); Mean Corpuscular Hgb Conc. 32.5 g/dL (32.0-36.0); Mean Corpuscular Volume 81.1 fL (80.0-100.0); Monocytes % (auto) 6.6 % (0.0-12.0); Neutrophils # (auto) 3.5 10 ^3/uL (1.6-8.6); Neutrophils % (auto) 64.2 % (37.0-80.0); Red Blood Cells 2.94 10^6/uL (4.5-5.90); Red Cell Distribution Width 19.2 % (11.8-14.3); White Blood Cell 5.5 10^3/uL (4.4-10.8)
[2022-10-24 06:02] LABS: BUN/Creatinine Ratio 14.4; Calcium 8.7 mg/dL (8.5-10.1); Potassium 4.6 mmol/L (3.5-5.1)
[2022-10-24] MEDS: PANTOPRAZOLE 40 MG/10 ML VIAL INJ IV SCH ×2 (08:09→10:01)
[2022-10-24 08:59] VITALS: BP 137/80
[2022-10-24] MEDS: FERROUS SULFATE 325mg EC TAB PO SCH ×2 (09:58→18:00)
[2022-10-24] MEDS: MULTIPLE VITAMIN TAB PO SCH (09:59)
[2022-10-24] MEDS: METOPROLOL TARTRATE 50 MG TAB PO SCH ×2 (09:59→22:43)
[2022-10-24] MEDS: OLANZapine 5 MG TAB PO SCH (10:00)
[2022-10-24] MEDS: NIFEdipine ER 30 MG TAB PO SCH (10:00)
[2022-10-24] MEDS: CHOLECALCIFEROL (VITD3) 2,000 UNIT CAP/TAB PO SCH (10:00)
[2022-10-24 12:42] VITALS: BP 129/70
[2022-10-24 16:48] VITALS: BP 138/76
[2022-10-24 22:00] VITALS: BP 124/68
[2022-10-25 04:53] VITALS: BP 123/68
[2022-10-25 08:42] VITALS: BP 115/66
[2022-10-25] MEDS: PANTOPRAZOLE 40 MG/10 ML VIAL INJ IV SCH (10:00)
[2022-10-25] MEDS: FERROUS SULFATE 325mg EC TAB PO SCH ×2 (10:23→19:00)
[2022-10-25] MEDS: METOPROLOL TARTRATE 50 MG TAB PO SCH ×2 (10:23→22:17)
[2022-10-25] MEDS: OLANZapine 5 MG TAB PO SCH (10:24)
[2022-10-25] MEDS: MULTIPLE VITAMIN TAB PO SCH (10:24)
[2022-10-25] MEDS: NIFEdipine ER 30 MG TAB PO SCH (10:24)
[2022-10-25] MEDS: CHOLECALCIFEROL (VITD3) 2,000 UNIT CAP/TAB PO SCH (10:24)
[2022-10-25 22:00] VITALS: BP 121/71
[2022-10-26 05:00] VITALS: BP 118/64
[2022-10-26 09:00] VITALS: BP 134/73
[2022-10-26] MEDS: PANTOPRAZOLE 40 MG/10 ML VIAL INJ IV SCH ×2 (09:48→09:54)
[2022-10-26] MEDS: OLANZapine 5 MG TAB PO SCH (09:49)
[2022-10-26] MEDS: CHOLECALCIFEROL (VITD3) 2,000 UNIT CAP/TAB PO SCH (09:49)
[2022-10-26] MEDS: METOPROLOL TARTRATE 50 MG TAB PO SCH ×2 (09:50→22:31)
[2022-10-26] MEDS: MULTIPLE VITAMIN TAB PO SCH (09:50)
[2022-10-26] MEDS: NIFEdipine ER 30 MG TAB PO SCH (09:51)
[2022-10-26] MEDS: FERROUS SULFATE 325mg EC TAB PO SCH ×2 (09:53→18:00)
[2022-10-26 13:00] VITALS: BP 120/67
[2022-10-26 17:00] VITALS: BP 117/68
[2022-10-26 22:00] VITALS: BP 125/65
[2022-10-27 05:00] VITALS: BP 118/60
[2022-10-27] MEDS: FERROUS SULFATE 325mg EC TAB PO SCH ×2 (07:57→17:51)
[2022-10-27 08:00] VITALS: BP 135/79
[2022-10-27 08:30] VITALS: BP 135/79
[2022-10-27] MEDS: NIFEdipine ER 30 MG TAB PO SCH (09:13)
[2022-10-27] MEDS: OLANZapine 5 MG TAB PO SCH (09:13)
[2022-10-27] MEDS: MULTIPLE VITAMIN TAB PO SCH (09:13)
[2022-10-27] MEDS: METOPROLOL TARTRATE 50 MG TAB PO SCH ×2 (09:14→22:07)
[2022-10-27] MEDS: CHOLECALCIFEROL (VITD3) 2,000 UNIT CAP/TAB PO SCH (09:14)
[2022-10-27] MEDS: Pro-Stat SF 30ml Vanilla PO SCH (09:15)
[2022-10-27] MEDS: PANTOPRAZOLE 40 MG/10 ML VIAL INJ IV SCH (09:15)
[2022-10-27 12:00] VITALS: BP 117/71
[2022-10-27 16:00] VITALS: BP 111/81
[2022-10-27 22:00] VITALS: BP 135/72
[2022-10-27] MEDS: ACETAMINOPHEN 500 MG TAB PO PRN (22:08)
[2022-10-28 05:00] VITALS: BP 108/65
[2022-10-28 08:00] VITALS: BP 111/60
[2022-10-28 09:00] VITALS: BP 111/60
[2022-10-28] MEDS: PANTOPRAZOLE 40 MG/10 ML VIAL INJ IV SCH (10:00)
[2022-10-28] MEDS: OLANZapine 5 MG TAB PO SCH (11:45)
[2022-10-28] MEDS: MULTIPLE VITAMIN TAB PO SCH (11:47)
[2022-10-28] MEDS: METOPROLOL TARTRATE 50 MG TAB PO SCH ×2 (11:47→21:23)
[2022-10-28] MEDS: CHOLECALCIFEROL (VITD3) 2,000 UNIT CAP/TAB PO SCH (11:47)
[2022-10-28] MEDS: NIFEdipine ER 30 MG TAB PO SCH (11:48)
[2022-10-28] MEDS: FERROUS SULFATE 325mg EC TAB PO SCH ×2 (11:50→17:46)
[2022-10-28] MEDS: Pro-Stat SF 30ml Vanilla PO SCH (11:52)
[2022-10-28 13:00] VITALS: BP 97/62
[2022-10-28 20:00] VITALS: BP 113/65
[2022-10-28 22:00] VITALS: BP 113/65
[2022-10-29] VITALS (7 sets, daily range): BP systolic 107–128; BP diastolic 60–81
[2022-10-29] MEDS: CIPROFLOXACIN 0.3%OPTH(EYE) SOL 5ML EACHEYE SCH ×4 (10:50→21:47)
[2022-10-29] MEDS: FERROUS SULFATE 325mg EC TAB PO SCH ×2 (11:36→18:18)
[2022-10-29] MEDS: METOPROLOL TARTRATE 50 MG TAB PO SCH ×2 (11:37→21:50)
[2022-10-29] MEDS: Pro-Stat SF 30ml Vanilla PO SCH (11:37)
[2022-10-29] MEDS: MULTIPLE VITAMIN TAB PO SCH (11:37)
[2022-10-29] MEDS: CHOLECALCIFEROL (VITD3) 2,000 UNIT CAP/TAB PO SCH (11:38)
[2022-10-29] MEDS: NIFEdipine ER 30 MG TAB PO SCH (11:38)
[2022-10-29] MEDS: OLANZapine 5 MG TAB PO SCH (11:38)
[2022-10-29] MEDS: PANTOPRAZOLE 40 MG TAB PO SCH (11:38)
[2022-10-29 14:14] LABS: Basophils # (auto) 0.1 10 ^3/uL (0-0.2); Hemoglobin 8.8 g/dL (13.5-17.5); Monocytes # (auto) 0.4 10 ^3/uL (0-1.3); White Blood Cell 6.4 10^3/uL (4.4-10.8)
[2022-10-29 14:15] LABS: Basophils % (auto) 2.1 % (0.0-2.0); Eosinophils # (auto) 0.1 10 ^3/uL (0-0.8); Hematocrit 28.5 % (41.0-53.0); Lymphocytes # (auto) 1.7 10 ^3/uL (0.4-5.4); Lymphocytes % (auto) 26.9 % (10.0-50.0); Mean Corpuscular Hemoglobin 24.4 pg (28.0-32.0); Mean Corpuscular Hgb Conc. 30.9 g/dL (32.0-36.0); Mean Corpuscular Volume 79.1 fL (80.0-100.0); Monocytes % (auto) 6.8 % (0.0-12.0); Neutrophils % (auto) 63.2 % (37.0-80.0); Red Blood Cells 3.61 10^6/uL (4.5-5.90); Red Cell Distribution Width 18.7 % (11.8-14.3)
[2022-10-29 14:36] LABS: BUN/Creatinine Ratio 12.3; Calcium 9.2 mg/dL (8.5-10.1)
[2022-10-30] MEDS: CIPROFLOXACIN 0.3%OPTH(EYE) SOL 5ML EACHEYE SCH ×6 (02:00→22:41)
[2022-10-30 05:00] VITALS: BP 137/77
[2022-10-30 09:01] VITALS: BP 125/70
[2022-10-30] MEDS: NIFEdipine ER 30 MG TAB PO SCH (10:50)
[2022-10-30] MEDS: Pro-Stat SF 30ml Vanilla PO SCH (10:50)
[2022-10-30] MEDS: METOPROLOL TARTRATE 50 MG TAB PO SCH ×2 (10:50→22:40)
[2022-10-30] MEDS: MULTIPLE VITAMIN TAB PO SCH (10:50)
[2022-10-30] MEDS: PANTOPRAZOLE 40 MG TAB PO SCH (10:50)
[2022-10-30] MEDS: FERROUS SULFATE 325mg EC TAB PO SCH ×2 (10:50→18:43)
[2022-10-30] MEDS: CHOLECALCIFEROL (VITD3) 2,000 UNIT CAP/TAB PO SCH (10:50)
[2022-10-30] MEDS: OLANZapine 5 MG TAB PO SCH (10:50)
[2022-10-30 12:27] VITALS: BP 111/66
[2022-10-30 16:06] VITALS: BP 118/75
[2022-10-30 22:00] VITALS: BP 100/45
[2022-10-30 22:40] VITALS: BP 112/72
[2022-10-31] MEDS: CIPROFLOXACIN 0.3%OPTH(EYE) SOL 5ML EACHEYE SCH ×6 (02:11→22:18)
[2022-10-31 05:58] VITALS: BP 124/57
[2022-10-31 09:00] VITALS: BP 137/89
[2022-10-31] MEDS: METOPROLOL TARTRATE 50 MG TAB PO SCH ×2 (09:53→22:18)
[2022-10-31] MEDS: NIFEdipine ER 30 MG TAB PO SCH (09:53)
[2022-10-31] MEDS: PANTOPRAZOLE 40 MG TAB PO SCH (09:53)
[2022-10-31] MEDS: OLANZapine 5 MG TAB PO SCH (09:53)
[2022-10-31] MEDS: FERROUS SULFATE 325mg EC TAB PO SCH ×2 (09:53→18:04)
[2022-10-31] MEDS: MULTIPLE VITAMIN TAB PO SCH (09:54)
[2022-10-31] MEDS: CHOLECALCIFEROL (VITD3) 2,000 UNIT CAP/TAB PO SCH (09:55)
[2022-10-31] MEDS: Pro-Stat SF 30ml Vanilla PO SCH (10:06)
[2022-10-31 12:44] VITALS: BP 129/93
[2022-10-31 17:00] VITALS: BP 144/71
[2022-10-31 22:00] VITALS: BP 142/71
[2022-10-31] MEDS: NEOMYCIN-BACITRACIN-POLYM 15GM TOP OINT TOP SCH (22:24)
[2022-11-01] MEDS: CIPROFLOXACIN 0.3%OPTH(EYE) SOL 5ML EACHEYE SCH ×6 (02:12→22:15)
[2022-11-01] MEDS: OLANZapine 5 MG TAB PO SCH (08:41)
[2022-11-01] MEDS: FERROUS SULFATE 325mg EC TAB PO SCH ×2 (08:41→17:19)
[2022-11-01] MEDS: NIFEdipine ER 30 MG TAB PO SCH (08:42)
[2022-11-01] MEDS: MULTIPLE VITAMIN TAB PO SCH (08:42)
[2022-11-01] MEDS: CHOLECALCIFEROL (VITD3) 2,000 UNIT CAP/TAB PO SCH (08:42)
[2022-11-01] MEDS: PANTOPRAZOLE 40 MG TAB PO SCH (08:42)
[2022-11-01] MEDS: NEOMYCIN-BACITRACIN-POLYM 15GM TOP OINT TOP SCH ×2 (08:44→22:15)
[2022-11-01] MEDS: Pro-Stat SF 30ml Vanilla PO SCH (08:48)
[2022-11-01] MEDS: METOPROLOL TARTRATE 50 MG TAB PO SCH ×2 (08:48→22:31)
[2022-11-01 09:00] VITALS: BP 146/70
[2022-11-01 13:00] VITALS: BP 125/70
[2022-11-01 17:00] VITALS: BP 123/69
[2022-11-02] MEDS: CIPROFLOXACIN 0.3%OPTH(EYE) SOL 5ML EACHEYE SCH ×2 (02:00→06:01)
[2022-11-02] MEDS: FERROUS SULFATE 325mg EC TAB PO SCH (09:05)
[2022-11-02 09:24] VITALS: BP 133/80
[2022-11-02] MEDS ORDERED: OLAN5TAB2 PO (09:37)
[2022-11-02] MEDS ORDERED: METO-6 PO (09:37)
[2022-11-02] MEDS ORDERED: ARTIOIN6 OP (09:37)
[2022-11-02] MEDS ORDERED: NEOM1OIN18 EX (09:37)
[2022-11-02] MEDS ORDERED: [UNRECOGNIZED DRUG - CODE] EACHEYE (09:37)
[2022-11-02] MEDS ORDERED: MULT-351 PO (09:37)
[2022-11-02] MEDS: PANTOPRAZOLE 40 MG TAB PO SCH (10:00)
[2022-11-02] MEDS: Pro-Stat SF 30ml Vanilla PO SCH (10:00)
[2022-11-02] MEDS: MULTIPLE VITAMIN TAB PO SCH (10:00)
[2022-11-02] MEDS: NIFEdipine ER 30 MG TAB PO SCH (10:00)
[2022-11-02] MEDS: CHOLECALCIFEROL (VITD3) 2,000 UNIT CAP/TAB PO SCH (10:00)
[2022-11-02] MEDS: OLANZapine 5 MG TAB PO SCH (10:00)
[2022-11-02] MEDS: METOPROLOL TARTRATE 50 MG TAB PO SCH (10:00)
== END 2022-11-02 11:45 | disposition home or self-care (01) | DRG 720 ==
LOC: EDUNIT# 09:19 → ER 09:19 → TELE 16:27 → TELE-WESTW 10-04 09:09 → ICU WEST 10-04 09:13 → TELE-WESTW 10-07 17:37 → TELE-EAST 10-13 19:09 → EAST 10-14 03:16
PROVIDERS: ADMIT Nurse Practitioner Acute Care; ATTEND Nurse Practitioner Acute Care
PROC: 5A1945Z Respiratory Ventilation, 24-96 Consecutive Hours (ICD-10-PCS; principal; 2022-10-03)
PROC: 0BH17EZ Insertion of Endotracheal Airway into Trachea, Via Natural or Artificial Opening (ICD-10-PCS; 2022-10-03)
PROC: 30233N1 Transfusion of Nonautologous Red Blood Cells into Peripheral Vein, Percutaneous Approach (ICD-10-PCS; 2022-10-17)
DX: A40.8 Other streptococcal sepsis (principal); N17.0 Acute kidney failure with tubular necrosis; J96.01 Acute respiratory failure with hypoxia; R65.21 Severe sepsis with septic shock; E44.0 Moderate protein-calorie malnutrition; I96 Gangrene, not elsewhere classified; G93.41 Metabolic encephalopathy; D63.1 Anemia in chronic kidney disease; I21.A1 Myocardial infarction type 2; Z20.822 Contact with and (suspected) exposure to COVID-19; T68.XXXA Hypothermia, initial encounter; D50.9 Iron deficiency anemia, unspecified; J98.11 Atelectasis; N18.9 Chronic kidney disease, unspecified; I12.9 Hypertensive chronic kidney disease with stage 1 through stage 4 chronic kidney disease, or unspecified chronic kidney disease; E55.9 Vitamin D deficiency, unspecified; D64.9 Anemia, unspecified; F91.9 Conduct disorder, unspecified; R82.4 Acetonuria; Z59.00 Homelessness unspecified; X31.XXXA Exposure to excessive natural cold, initial encounter; Z99.11 Dependence on respirator [ventilator] status; Z68.22 Body mass index [BMI] 22.0-22.9, adult
CPT/HCPCS: 31500; 36415; 36556; 36600; 70450; 71045; 73630; 76775; 80048; 80053; 80202; 80307; 81001; 82306; 82570; 82607; 82746; 82805; 83605; 83735; 83970; 84100; 84156; 84300; 84443; 84484; 85025; 86850; 86900; 86901; 86920; 87040; 87070; 87077; 87081; 87186; 87205; 87426; 93005; 93306; 94002; 94003; 94640; 96360; 96361; 97110; 97116; 97163; 97164; 97530; 99291; C9113; G0378; J0330; J0696; J1956; J2250; J3480; J3490; J7042

== ENCOUNTER 2023-02-02 19:53 | Emergency (ER) | payer MEDICARE, MEDICAID ==
[~2023-02-02] VITALS: Ht 167.6 cm; Wt 54.5 kg
[~2023-02-02 19:53] MED LIST changes: +ARTIOIN6 OP; +METO-6 PO; +MULT-351 PO; +NEOM-48 EX; +OLAN5TAB2 PO; +[UNRECOGNIZED DRUG - CODE] EACHEYE
[2023-02-02 21:51] LABS: Basophils # (auto) 0.1 10 ^3/uL (0-0.2); Basophils % (auto) 1.7 % (0.0-2.0); Eosinophils # (auto) 0 10 ^3/uL (0-0.8); Eosinophils % (auto) 0.6 % (0.0-7.0); Hematocrit 38.6 % (41.0-53.0); Hemoglobin 12.5 g/dL (13.5-17.5); Lymphocytes # (auto) 1.4 10 ^3/uL (0.4-5.4); Mean Corpuscular Hemoglobin 27.5 pg (28.0-32.0); Mean Corpuscular Hgb Conc. 32.4 g/dL (32.0-36.0); Mean Corpuscular Volume 84.8 fL (80.0-100.0); Monocytes # (auto) 0.2 10 ^3/uL (0-1.3); Monocytes % (auto) 4.2 % (0.0-12.0); Neutrophils # (auto) 3.1 10 ^3/uL (1.6-8.6); Neutrophils % (auto) 64.5 % (37.0-80.0); Nucleated Red Blood Cells % 0.1 %; Red Blood Cells 4.56 10^6/uL (4.5-5.90); Red Cell Distribution Width 19.5 % (11.8-14.3); White Blood Cell 4.8 10^3/uL (4.4-10.8)
[2023-02-02 21:59] LABS: Albumin 3.6 g/dL (3.4-5.0); Anion Gap 7 (5-15); Blood Urea Nitrogen 17 mg/dL (7-18); Calcium 9.4 mg/dL (8.5-10.1); Carbon Dioxide 30 mmol/L (21-32); Chloride 108 mmol/L (98-107); Glucose 106 mg/dL (74-106); Sodium 145 mmol/L (136-145)
[2023-02-02 22:00] LABS: Salicylate < 1.7 mg/dL (2.8-20.0)
[2023-02-02 22:01] LABS: Acetaminophen < 2.0 ug/mL (10-30)
[2023-02-02 22:03] LABS: Alanine Aminotransferase 16 U/L (16-61); Alkaline Phosphatase 75 U/L (45-117); Aspartate Aminotransferase 9 U/L (15-37); BUN/Creatinine Ratio 11.6 (10.0-20.0); Bilirubin, Total 0.2 mg/dL (0.2-1.0); Blood Alcohol < 3.0 mg/dL (0-5); CRP High Sensitivity 0.84 mg/dL (< 0.3); GFR African American 61 mL/min; GFR Non-African American 51 mL/min
[2023-02-03] MEDS ORDERED: hydrALAZINE HCL 20 MG/ML VL IV ONE
[2023-02-03 08:51] LABS: Alcohol, Urine < 3.0 mg/dL (0-10); Amphetamine Screen, Urine NEGATIVE (NEGATIVE); Barbiturate Scree,Urine NEGATIVE (NEGATIVE); Benzodiazephine Screen, Urine NEGATIVE (NEGATIVE); Cannabinoid Screen, Urine NEGATIVE (NEGATIVE); Cocaine Screen, Urine NEGATIVE (NEGATIVE); Opiate Scree,Urine NEGATIVE (NEGATIVE); Phencyclidine Screen, Urine NEGATIVE (NEGATIVE)
[2023-02-03] MEDS ORDERED: cloNIDine HCL 0.1 MG TAB PO ONE (23:45)
[2023-02-04 09:41] VITALS: BP 156/88
[2023-02-04] MEDS ORDERED: LOSARTAN POTASSIUM 50 MG TAB PO SCH (10:00)
== END 2023-02-04 19:07 | disposition left against medical advice (07) ==
LOC: ER 19:53 → EDBD 19:53 → ER 02-04 16:50
DX: F31.9 Bipolar disorder, unspecified (principal); F23 Brief psychotic disorder; R41.82 Altered mental status, unspecified; R51.9 Headache, unspecified; Z59.00 Homelessness unspecified; Z79.899 Other long term (current) drug therapy; Z88.6 Allergy status to analgesic agent
CPT/HCPCS: 36415; 70450; 73700; 80053; 80164; 80307; 80320; 80329; 85025; 85652; 86141; 96374; 99285; J0360